=== PATIENT | male | born 1970 | race Caucasian/White ===

== ENCOUNTER → 2017-09-16 18:23 | Outpatient (CLI) | payer OTHER | END | disposition home or self-care (01) | LOC: LAB 18:23 | DX: J11.1 Influenza due to unidentified influenza virus with other respiratory manifestations (principal) ==

== ENCOUNTER → 2017-09-16 | Outpatient (CLI) | payer OTHER ==
[~2017-09-16] VITALS: Ht 152.4 cm; Wt 108.9 kg
[~2017-09-16] MED LIST: CATAFLAM 50 MG PO; FIORICET PO
== END | disposition home or self-care (01) ==
LOC: PPHC 17:42
DX: R05 Cough (principal); J06.9 Acute upper respiratory infection, unspecified

== ENCOUNTER → 2018-06-11 | Emergency (ER) | payer OTHER ==
[~2018-06-11] VITALS: Ht 180.3 cm; Wt 107.0 kg
[~2018-06-11] MED LIST changes: +KETO10TA2 PO; +ORPHENADRINE C100 MG PO
== END | disposition home or self-care (01) ==
LOC: ER 20:25
DX: S33.5XXA Sprain of ligaments of lumbar spine, initial encounter (principal); S13.8XXA Sprain of joints and ligaments of other parts of neck, initial encounter; S60.032A Contusion of left middle finger without damage to nail, initial encounter; S80.01XA Contusion of right knee, initial encounter; V43.52XA Car driver injured in collision with other type car in traffic accident, initial encounter; Y93.89 Activity, other specified; Y92.488 Other paved roadways as the place of occurrence of the external cause; Y99.8 Other external cause status

== ENCOUNTER 2019-09-18 22:46 | Emergency (ER) | payer OTHER ==
[~2019-09-18] VITALS: Ht 182.9 cm; Wt 108.9 kg
== END 2019-09-19 01:05 | disposition home or self-care (01) ==
LOC: ER 22:46
DX: G89.29 Other chronic pain (principal); M54.5 Low back pain

== ENCOUNTER 2021-08-07 09:46 | Emergency (ER) | payer OTHER ==
[~2021-08-07] VITALS: Ht 180.3 cm; Wt 108.9 kg
[2021-08-07] MEDS ORDERED: NORFLEX100MG PO (14:25)
[2021-08-07] MEDS ORDERED: KETO10TA2 PO (14:25)
== END 2021-08-07 15:24 | disposition home or self-care (01) ==
LOC: ER 09:46
DX: M54.59 Other low back pain (principal)